=== PATIENT | male | born 1980 | race Two or more races ===

== ENCOUNTER 2024-07-16 10:49 | Outpatient (AMB) | payer MEDICAID, SELFPAY ==
[2024-07-16 11:01] VITALS: BP 160/75; PULSE 80; RESP 19; TEMP 36.6; O2SAT 96
--- NOTE | 2024-07-16 11:01 | GSCOFFNT_ITS ---
Vital Signs - [facility] 07/16/24 11:01 Height 1.75 m Height Method Stated Weight 92.334 kg Weight Measurement Method Standing Scale BMI 30.0 BP 160/75 H Blood Pressure Source Automatic Cuff Blood Pressure Location Right Upper Arm Position Sitting Respiration 19 Pulse 80 Pulse Source Monitor Temp 97.8 F Temp Source Temporal Artery Scan Pulse Oximetry (%) 96 Oxygen Delivery Method Room Air Med/Allergies Allergies & Medications Allergies No Known Drug Allergies Allergy (Verified 07/16/24 11:02) Medication Reconciliation losartan 50 mg tablet 50 mg PO QDAY 07/16/24 [History Confirmed 07/16/24] MA Intake Visit Data Collection New Patient or Established: New Patient (never been to [facility]) Reason for Visit:: PERIANAL ABSCESS REFERRAL Pain Present Currently: Yes Pain Location: Buttock Pain scale:: 2 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 Pt states that 11 months ago he had drainage of a perianal cyst, and after that noted drainage from that area almost daily. He has had times where the area swells up and is unable to drain as well. Pt states his BMs are soft and regular, without any diarrhea or straining and he denies any blood in his stool. Pt also denies any abdominal pain, changes in weight or appetite and he has not had a colonoscopy PMH: HTN PSHx: I&D of perianal abscess in 2023, cholecystectomy Meds: Losartan Allergies: NKDA Social hx: Nonsmoker Family hx: No known IBD or malignancy ROS Review of Systems Systems Reviewed: All systems reviewed, normal except as documented Objective/Exam General General Appearance: alert, cooperative and well groomed Resp Respiratory exam: Absent respiratory distress Rectal Rectal exam: Present other (right perianal fistula external opening approx 4cm from anal verge, with minimal blood and yellow drainage. Normal SATISH, slight increase in yellow drainage from external opening when pressure applied to the right side of the anus) Results CT reviewed showing right perianal fistula tract up to 3cm Assessment & Plan Diagnosis / Problem List (1) Perianal fistula: Status: Acute Assessment & Plan: 44M presenting with a perianal fistula after I&D of perianal abscess. I explained that fistula tends to occur in 50% of patients with perianal abscesses drained and that surgery is done in two stages, first with seton placement followed by definitive repair when the drainage significantly decreases. I explained benefits/risks and pt is eager to proceed as soon as possible. As he does not have any high-risk features or signs of IBD I do not plan on colonoscopy for now Plan: Examination under anesthesia with seton placement SON Office Procedures GNS Level of Care Nursing/Assessment Patient Status: Initial/New Patient Nursing Assessment/Reassesment: Medication Reconciliation, Update PMH in EMR and Vital Signs Coordination of Care: Complex Care and Chronic Disease 1-5, Education Complex Pt/Fam, Consent,records obtained, informed consent, Results/Orders obtained and Staff clarify orders Special Needs: Language special needs New Patient Charge New Patient Point Assignment: [id number] New Patient Point Charge: MASTER CARPENTER Level 3 ([id number]) Patient Portal Questionaires Social History Tobacco History Smoking Status: Never smoker Domestic Abuse History Do You Feel Safe at Home: Yes Review of Systems Report any current symptoms Only answer those that you have currently: Past Medical History Past Medical History Have you ever been diagnosed with any of the following:
== END 2024-07-16 11:56 | disposition home or self-care (01) ==
LOC: HODSRG 10:49
PROVIDERS: PCP Internal Medicine; Referring Provider Internal Medicine; Supervising Provider Surgery; Visit Provider Surgery
DX: K60.30 Anal fistula, unspecified (principal)
CPT/HCPCS: 99203; G0463

== ENCOUNTER 2024-08-01 05:35 | Day surgery (SDC) | payer MEDICAID, SELFPAY ==
--- NOTE | 2024-07-30 07:00 | EKG_ITS ---
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
[2024-07-30 09:12] VITALS: BMI 31.8
[2024-07-30 10:52] LABS: Basophils # (Auto) 0.1 Thou/mm3 (0.0-0.2); Basophils % (Auto) 1 % (0-2.5); Eosinophils # (Auto) 0.2 Thou/mm3 (0.0-0.5); Eosinophils % (Auto) 3 % (0-10); Hematocrit 44.9 % (41.0-53.0); Hemoglobin 15.5 g/dL (13.5-16.0); Immature Granulocytes % (Auto) 1 % (0-0); Immature Granulocytes Auto 0.04 Thou/mm3 (0.00-0.00); Lymphocytes # (Auto) 2.2 Thou/mm3 (1.0-4.8); Lymphocytes % (Auto) 34 % (10-50); Mean Corpuscular HGB Conc 34.5 g/dl (31.0-37.0); Mean Corpuscular Hemoglobin 28.7 pg (25.0-35.0); Mean Corpuscular Volume 83 fL (80-100); Monocytes # (Auto) 0.5 Thou/mm3 (0.0-0.8); Monocytes % (Auto) 8 % (0-12); Neutrophils # (Auto) 3.6 Thou/mm3 (1.8-7.7); Neutrophils % (Auto) 54 % (37-80); Nucleated Red Blood Cell % 0 /100 WBC (0); Platelet Count 375 Thou/mm3 (140-440); RDW Standard Deviation 39.7 fL (35.1-43.9); White Blood Count 6.6 Thou/mm3 (3.8-10.6)
[2024-07-30 11:00] LABS: INR 1.1 (0.9-1.3); Partial Thromboplastin Time 30.9 Seconds (22.0-36.0); Prothrombin Time 12.3 Seconds (9.0-12.2)
[2024-07-30 11:15] LABS: Alanine Aminotransferase 24 U/L (10-49); Albumin, Serum 4.5 gm/dL (3.5-5.0); Albumin/Globulin Ratio 1.7 (1.2-2.2); Alkaline Phosphatase 59 U/L (46-116); Anion Gap 11 (7-16); Aspartate Amino Transferase 20 U/L (0-34); BUN/Creatinine Ratio 16 Ratio (12-20); Bilirubin,Total 0.8 mg/dL (0.3-1.2); Blood Urea Nitrogen 14 mg/dL (9-23); Calcium 9.2 mg/dL (8.3-10.6); Calcium (Corrected) 9.2 mg/dL (8.5-10.1); Carbon Dioxide 27.3 mMol/L (20.0-31.0); Chloride 102 mMol/L (98-107); Creatinine (Component) 0.9 mg/dL (0.6-1.3); Estimated Creatinine Clearance 115.8 mL/min (>60); Globulin 2.6 gm/dL (2.3-3.5); Glucose 100 mg/dL (74-106); Osmolality,Calculated 279 (275-295); Potassium 4.1 mMol/L (3.4-5.1); Sodium 140 mMol/L (136-145); Total Protein 7.1 gm/dL (5.7-8.2); eGFR > 60 See Note
[2024-08-01] VITALS (7 sets, daily range): BP systolic 111–149; BP diastolic 65–83; PULSE 75–95; RESP 12–16; TEMP 36.3–36.8; O2SAT 95–100; BMI 31.1
--- NOTE | 2024-08-01 08:13 | PD.SUROPNT ---
Date of Procedure 08/01/24 Pre Op Diagnosis Perianal fistula Post Op Diagnosis Same Procedure Examination under anesthesia, placement of seton Findings Right posterior perianal fistula approximately 4 cm from anal verge Procedure Description After discussion of risks and benefits, patient was brought to the operating room and general anesthesia was induced. He was placed in the lithotomy position with proper padding and was prepped and draped in the usual sterile fashion. After timeout a SATISH was performed which was normal. A Leslie retractor was then placed into the anal canal. The external opening of the perianal fistula was noted in the right posterior perianal region approximately 4 cm from the anal verge. The external opening was cannulated with the fistula probe and the internal opening was found. A seton (vessel loop) was tied to the probe with a 0 silk tie and was brought through the external opening. The seton was tied to itself using 3-0 silk interrupted ties. There were no signs of bleeding at the end of the case. A right pudendal nerve block was performed as well as a local block for a total of 30 cc of half percent Marcaine. Patient was returned to supine position and extubated without complication. He was brought to PACU in stable condition Pathology / specimen None Estimated Blood Loss 20 Surgeon Livia Magana MD Surgical Staff Operation Date: 08/01/24 07:30 Case Staff Anesthesiologist: Carlos Manuel Nunez
--- NOTE | 2024-08-01 08:16 | PD.SURDS ---
Planned Discharge Date 08/01/24 DS: Providers Provider Primary care physician: Mallory Corona MD Attending Provider on Admission: Livia Magana MD Attending Provider on DC: Livia Magana MD Discharging Provider: Livia Magana MD Diagnosis Discharge Diagnosis (1) Perianal fistula: Status: Acute Problem List Completed Was Problem List Reviewed/Reconciled?: Yes Exam Vital Signs Temp Pulse Resp BP Pulse Ox 98.3 F 78 12 149/83 H 100 08/01/24 06:50 08/01/24 06:50 08/01/24 06:50 08/01/24 06:50 08/01/24 06:50 Constitutional Constitutional: no acute distress Discharge Plan Plan Patient Disposition: HOME (Self Care) Prescriptions/Referrals Prescriptions/Med Rec: New oxycodone-acetaminophen [Percocet] 5-325 mg tablet 1 tab PO Q6H MDD 4 tabs PRN (Reason: pain) Qty: 20 0RF Rx Instructions: Take 1 tablet as needed every 6 hours for severe pain docusate sodium [Colace] 100 mg capsule 100 mg PO QDAY PRN (Reason: constipation) Qty: 30 0RF No Action losartan 50 mg tablet 50 mg PO QDAY doxycycline monohydrate 100 mg capsule 100 mg PO BID Referrals: Livia Magana MD [Physician] - (You will receive a phone call to confirm a follow-up appointment with me in 6 weeks) Mallory Corona MD [Primary Care Provider] - Patient/Caregiver Discharge Instructions Other Discharge Activity Instructions:: Avoid constipation and diarrhea You may take ibuprofen as needed between doses of Percocet or instead of Percocet for mild to moderate pain You may resume sitz baths as needed for pain, bleeding, and itching up to three times a day starting tomorrow 08/01 If you develop worsening pain, fever, nausea/vomiting or difficulty urinating please seek care in ER Education Materials: Surgery Anesthesia After, ED [facility]ist[facility], [facility] General Discharge-English Print Language: English Stand Alone Forms: Jessica Award Info., Patient Portal Info Letter Discharge Order Discharge Orders: Discharge (Routine); Ordered 08/01/24 Ordered By: Livia Magana Results Results: Laboratory Laboratory results: results reviewed Procedures Procedure Date 08/01/24 Procedures Examination under anesthesia, placement of seton
--- NOTE | 2024-08-01 08:26 | SUR.PHASEI ---
pt received from OR in recovery bay 1. pt asleep but responds to voice, breathing unlabored on 4l nc. v/s stable. pt dressing to rectum cdi. report received from Dr. Nunez and Wanda EUGENE.
[2024-08-01] MEDS: TAMSULOSIN HCL 0.4 MG CAPSULE PO (08:54)
--- NOTE | 2024-08-01 08:57 | SUR.PHASEII ---
pt able to tolerate oral fluids without difficulty swallowing or nausea/vomiting.
[2024-08-01] MEDS: ONDANSETRON INJ 2 MG/ML INJ 2 ML 4 MG IV (09:27)
--- NOTE | 2024-08-01 09:37 | SUR.PHASEII ---
pt awake and alert, breathing unlabored on room air. v/s stable. pt dressing to rectum cdi. d/c instructions given with s/o Magdalena in room using driller helper Faby Tellez, all questions answered. pt d/c via wheelchair with all belongings.
== END 2024-08-01 09:37 | disposition home or self-care (01) ==
PROVIDERS: Anesthesiology; PCP Internal Medicine; Referring Provider Surgery; Visit Provider Surgery
PROC: (CPT 46020; principal; 2024-08-01 07:30)
DX: K60.30 Anal fistula, unspecified (principal); Z01.810 Encounter for preprocedural cardiovascular examination
CPT/HCPCS: 46020; 36415; 80053; 85025; 85610; 85730; 93005; A4217; A4649; J1100; J2250; J2371; J2405; J2704; J2765; J3010; J3490; A9270

== ENCOUNTER 2024-08-13 13:11 | Outpatient (AMB) | payer MEDICAID, SELFPAY ==
[2024-08-13 13:34] VITALS: BP 137/79; PULSE 78; RESP 18; TEMP 36.8; O2SAT 97; BMI 31.6
--- NOTE | 2024-08-13 13:34 | GSCOFFNT_ITS ---
Vital Signs - [facility] 08/13/24 13:34 Height 1.7 m Height Method Stated Weight 91.626 kg Weight Measurement Method Standing Scale BMI 31.6 BP 137/79 H Blood Pressure Source Automatic Cuff Blood Pressure Location Left Upper Arm Position Sitting Respiration 18 Pulse 78 Pulse Source Monitor Temp 98.3 F Temp Source Temporal Artery Scan Pulse Oximetry (%) 97 Oxygen Delivery Method Room Air Med/Allergies Allergies & Medications Allergies aspirin Allergy (Mild, Verified 08/13/24 13:35) Hives Medication Reconciliation losartan 50 mg tablet 50 mg PO QDAY 07/16/24 [History Confirmed 08/13/24] doxycycline monohydrate 100 mg capsule 100 mg PO BID 07/30/24 [History Confirmed 08/13/24] docusate sodium 100 mg capsule (Colace) 100 mg PO QDAY PRN constipation #30 caps 08/01/24 [Rx Confirmed 08/13/24] oxycodone-acetaminophen 5 mg-325 mg tablet (Percocet) 1 tab PO Q6H PRN pain #20 tabs 08/01/24 [Rx Confirmed 08/13/24] MA Intake Visit Data Collection New Patient or Established: Established Patient (seen at [facility] within 3 years) Seen by Clinical Staff ONLY (RN/MA): No Reason for Visit:: FISTULA FOLLOW UP Pain Present Currently: No House Designer Required: No PCP or OBGYN visit in last 3 months: Yes Smoking Status Smoking Status: Never smoker Immunization / Flu Flu Vaccine in the Last 12 Months: No Flu Vaccine Exclusion Criteria: No Exclusion Criteria Past Medical History Past Medical History NEUROLOGIC: Negative Neurological Disorders or Seizures CARDIAC: Positive Cardiac Disorders and Hypertension; Negative Congestive Heart Failure RESPIRATORY: Negative Chronic Obstructive Pulmonary Disease (COPD) GASTROINTESTINAL: Positive Gastrointestinal Disorders (FISTULA IN RIGHT BUTTOCK), Gall Bladder Disease (HAD SURGERY) and Gastroesophageal Reflux Disease (AT TIMES); Negative Hepatitis GENITOURINARY: Negative Genitourinary Disorders or Renal Disease ENDOCRINE: Negative Endocrine Disorders, Diabetes Mellitus Type 1 or Diabetes Mellitus Type 2 HEMATOLOGIC: Negative Blood Disorders OTHER HISTORY: Positive Chicken Pox; Negative Falls, Blood Transfusions, Blood Transfusion Reaction, Anesthesia Reactions or Cancer Family History FAMILY HISTORY: Negative Family Cardiac Disorders, Family Surgery or Family Anesthesia Reaction Social History SMOKING STATUS: Smoking status: Never smoker HOUSING: Housing: Apartment HPI HPI Narrative 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 Pt is hoping to have definitive surgery before he returns to work Sep 23 so he requested to be seen sooner than the planned 6 week follow up. He states he feels well overall, has some discomfort from the seton but it is controlled with ibuprofen, and he feels his drainage has decreased by 50% since the surgery. He denies any fever, is having regular soft BMs and had some difficulty urinating at first but that has since improved ROS Review of Systems Systems Reviewed: All systems reviewed, normal except as documented Objective/Exam General General Appearance: alert and cooperative Resp Respiratory exam: Absent respiratory distress Rectal Rectal exam: Present other (right perianal seton in place with minimal drainage from external opening, no erythema) Assessment & Plan Diagnosis / Problem List (1) Perianal fistula: Status: Acute Assessment & Plan: 44M referred for perianal fistula s/p EUA with seton placement 08/01/24 here for follow up, with decreased drainage overall doing well. I explained that definitive surgery is best undertaken when drainage has significantly decreased and pt expressed understanding. Will follow up again in a few weeks Office Procedures GNS Level of Care Nursing/Assessment Patient Status: Established Patient Nursing Assessment/Reassesment: Medication Reconciliation, Update PMH in EMR and Vital Signs Coordination of Care: Complex Care and Chronic Disease 1-5, Consent,records obtained, informed consent, Education Simp Pt/Fam, Results/Orders obtained and Staff clarify orders Established Patient Charge Established Patient Point Assignment: 90 Established Patient Point Charge: EP Level 3 (80-115) Patient Portal Questionaires Social History Living Situation History Housing: Apartment Tobacco History Smoking Status: Never smoker Review of Systems Report any current symptoms Only answer those that you have currently: Past Medical History Past Medical History Have you ever been diagnosed with any of the following: Neurological Problems Seizures: No Cardiology Problems Congestive Heart Failure: No Hypertension: Yes Respiratory Problems Chronic Obstructive Pulmonary Disease (COPD): No Stomache/Intestinal Problems Hepatitis: No Gall Bladder Disease: Yes (HAD SURGERY) Gastroesophageal Reflux Disease: Yes (AT TIMES) Genital/Urinary Problems Renal Disease: No Endocrine Problems Diabetes Mellitus Type 1: No Diabetes Mellitus Type 2: No Other Problems Falls: No Blood Transfusions: No Blood Transfusion Reaction: No Anesthesia Reactions: No Chicken Pox: Yes Cancer: No
== END 2024-08-13 13:59 | disposition home or self-care (01) ==
LOC: HODSRG 13:11
PROVIDERS: PCP Internal Medicine; Referring Provider Internal Medicine; Supervising Provider Surgery; Visit Provider Surgery
DX: K60.30 Anal fistula, unspecified (principal); I10 Essential (primary) hypertension
CPT/HCPCS: 99213; G0463

== ENCOUNTER 2024-09-03 13:15 | Outpatient (AMB) | payer MEDICAID, SELFPAY ==
[2024-09-03 13:24] VITALS: BP 143/76; PULSE 107; RESP 18; TEMP 36.6; O2SAT 95; BMI 32.0
--- NOTE | 2024-09-03 13:24 | PD.GSCLVISIT ---
Vital Signs - [facility] 09/03/24 13:24 Height 1.7 m Height Method Stated Weight 92.561 kg Weight Measurement Method Standing Scale BMI 32.0 BP 143/76 H Blood Pressure Source Automatic Cuff Blood Pressure Location Right Upper Arm Position Sitting Respiration 18 Pulse 107 H Pulse Source Monitor Temp 97.8 F Temp Source Temporal Artery Scan Pulse Oximetry (%) 95 Oxygen Delivery Method Room Air Med/Allergies Allergies & Medications Allergies aspirin Allergy (Mild, Verified 09/03/24 13:25) Hives Medication Reconciliation losartan 50 mg tablet 50 mg PO QDAY 07/16/24 [History Confirmed 09/03/24] doxycycline monohydrate 100 mg capsule 100 mg PO BID 07/30/24 [History Confirmed 09/03/24] docusate sodium 100 mg capsule (Colace) 100 mg PO QDAY PRN constipation #30 caps 08/01/24 [Rx Confirmed 09/03/24] oxycodone-acetaminophen 5 mg-325 mg tablet (Percocet) 1 tab PO Q6H PRN pain #20 tabs 08/01/24 [Rx Confirmed 09/03/24] MA Intake Visit Data Collection New Patient or Established: Established Patient (seen at [facility] within 3 years) Seen by Clinical Staff ONLY (RN/MA): No Reason for Visit:: 3 WEEK F/U Pain Present Currently: Yes Pain Location: Buttock Pain scale:: 5 Pain Scale Used: Delarosa-Ruiz/Numerical Director Of Corporate Real Estate Required: Yes PCP or OBGYN visit in last 3 months: Yes Hx Now: No Do You Feel Safe at Home: Yes Authorities Contacted: N/A Smoking Status Smoking Status: Never smoker Immunization / Flu Flu Vaccine in the Last 12 Months: No Flu Vaccine Exclusion Criteria: No Exclusion Criteria Past Medical History Past Medical History NEUROLOGIC: Negative Neurological Disorders or Seizures CARDIAC: Positive Cardiac Disorders and Hypertension; Negative Congestive Heart Failure RESPIRATORY: Negative Chronic Obstructive Pulmonary Disease (COPD) GASTROINTESTINAL: Positive Gastrointestinal Disorders (FISTULA IN RIGHT BUTTOCK), Gall Bladder Disease (HAD SURGERY) and Gastroesophageal Reflux Disease (AT TIMES); Negative Hepatitis GENITOURINARY: Negative Genitourinary Disorders or Renal Disease MUSCULOSKELETAL: Negative Musculoskeletal Disorders ENDOCRINE: Negative Endocrine Disorders, Diabetes Mellitus Type 1 or Diabetes Mellitus Type 2 HEMATOLOGIC: Negative Blood Disorders OTHER HISTORY: Positive Chicken Pox; Negative Falls, Blood Transfusions, Blood Transfusion Reaction, Anesthesia Reactions or Cancer Family History FAMILY HISTORY: Negative Family Cardiac Disorders, Family Surgery or Family Anesthesia Reaction Social History SMOKING STATUS: Smoking status: Never smoker HOUSING: Housing: Apartment Travel Risk Travel Hx Recent Travel: No HPI HPI Narrative 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 Pt states he has a lot of pain related to the seton, it improves with ibuprofen and he denies any fever. His BMs are still soft and regular but he feels his drainage has overall increased. Pt has been taking antibiotics because he feels like when he stops them the drainage increases ROS Review of Systems Systems Reviewed: All systems reviewed, normal except as documented Objective/Exam General General Appearance: alert, cooperative and well groomed Resp Respiratory exam: Absent respiratory distress Rectal Rectal exam: Present other (right perianal fistula with external opening migrated more towards the anus, now approx 3cm from anal verge. Pt has pain with manipulation of the seton but there is no erythema, no fluctuance or active drainage) Assessment & Plan Diagnosis / Problem List (1) Perianal fistula: Status: Acute Assessment & Plan: 44M referred for perianal fistula s/p EUA with seton placement 08/01/24 here for follow up. As he has noted drainage has overall increased compared to before surgery, I recommended leaving the seton in and evaluating in another 6 weeks. Pt was hoping to have definitive surgery before he returns to work in September but I explained that definitive surgery in the setting of increased drainage may confer a higher risk of fistula persistence/recurrence. I offered to replace the seton as he has expressed that it feels tight but pt prefers not to for now. All questions were answered and pt ultimately agreed to 6 week follow up Office Procedures GNS Level of Care Nursing/Assessment Patient Status: Established Patient Nursing Assessment/Reassesment: Medication Reconciliation, Update PMH in EMR and Vital Signs Coordination of Care: Complex Care and Chronic Disease 1-5, Education Complex Pt/Fam, Consent,records obtained, informed consent, 1 Ins Authorization, Results/Orders obtained and Staff clarify orders Special Needs: Language special needs Established Patient Charge Established Patient Point Assignment: 110 Established Patient Point Charge: EP Level 3 (80-115) Patient Portal Questionaires Social History Living Situation History Housing: Apartment Tobacco History Smoking Status: Never smoker Domestic Abuse History Do You Feel Safe at Home: Yes Review of Systems Report any current symptoms Only answer those that you have currently: Past Medical History Past Medical History Have you ever been diagnosed with any of the following: Neurological Problems Seizures: No Cardiology Problems Congestive Heart Failure: No Hypertension: Yes Respiratory Problems Chronic Obstructive Pulmonary Disease (COPD): No Stomache/Intestinal Problems Hepatitis: No Gall Bladder Disease: Yes (HAD SURGERY) Gastroesophageal Reflux Disease: Yes (AT TIMES) Genital/Urinary Problems Renal Disease: No Endocrine Problems Diabetes Mellitus Type 1: No Diabetes Mellitus Type 2: No Other Problems Falls: No Blood Transfusions: No Blood Transfusion Reaction: No Anesthesia Reactions: No Chicken Pox: Yes Cancer: No
== END 2024-09-03 13:49 | disposition home or self-care (01) ==
LOC: HODSRG 13:15
PROVIDERS: PCP Internal Medicine; Referring Provider Internal Medicine; Supervising Provider Surgery; Visit Provider Surgery
DX: K60.30 Anal fistula, unspecified (principal)
CPT/HCPCS: 99213; G0463

== ENCOUNTER 2024-12-10 10:01 | Outpatient (AMB) | payer MEDICAID, SELFPAY ==
[2024-12-10 10:15] VITALS: BP 150/92; PULSE 77; RESP 18; TEMP 36.4; O2SAT 98; BMI 32.6
--- NOTE | 2024-12-10 10:15 | PD.GSCLVISIT ---
[facility] - [facility] 12/10/24 10:15 Height 1.7 m Height Method Measured Weight 94.404 kg Weight Measurement Method Standing Scale BMI 32.6 BP 150/92 H Blood Pressure Source Automatic Cuff Blood Pressure Location Left Upper Arm Position Sitting Respiration 18 Pulse 77 Pulse Source Monitor Temp 97.5 F Temp Source Temporal Artery Scan Pulse Oximetry (%) 98 Oxygen Delivery Method Room Air Med/Allergies Allergies & Medications Allergies aspirin Allergy (Mild, Verified 12/10/24 10:16) Hives Medication Reconciliation losartan 50 mg tablet 50 mg PO QDAY 07/16/24 [History Confirmed 12/10/24] doxycycline monohydrate 100 mg capsule 100 mg PO BID 07/30/24 [History Confirmed 12/10/24] docusate sodium 100 mg capsule (Colace) 100 mg PO QDAY PRN constipation #30 caps 08/01/24 [Rx Confirmed 12/10/24] oxycodone-acetaminophen 5 mg-325 mg tablet (Percocet) 1 tab PO Q6H PRN pain #20 tabs 08/01/24 [Rx Confirmed 12/10/24] MA Intake Visit Data Collection New Patient or Established: Established Patient (seen at [facility] within 3 years) Seen by Clinical Staff ONLY (RN/MA): No Reason for Visit:: FISTULA F/U Pain Present Currently: No Pain scale:: 0 Pain Scale Used: Delarosa-Ruiz/Numerical Double Needle Operator Required: No PCP or OBGYN visit in last 3 months: Yes Hx Now: No Do You Feel Safe at Home: Yes Authorities Contacted: N/A Smoking Status Smoking Status: Never smoker Immunization / Flu Flu Vaccine in the Last 12 Months: No Flu Vaccine Exclusion Criteria: No Exclusion Criteria Past Medical History Past Medical History NEUROLOGIC: Negative Neurological Disorders or Seizures CARDIAC: Positive Cardiac Disorders and Hypertension; Negative Congestive Heart Failure RESPIRATORY: Negative Chronic Obstructive Pulmonary Disease (COPD) GASTROINTESTINAL: Positive Gastrointestinal Disorders (FISTULA IN RIGHT BUTTOCK), Gall Bladder Disease (HAD SURGERY) and Gastroesophageal Reflux Disease (AT TIMES); Negative Hepatitis GENITOURINARY: Negative Genitourinary Disorders or Renal Disease ENDOCRINE: Negative Endocrine Disorders, Diabetes Mellitus Type 1 or Diabetes Mellitus Type 2 HEMATOLOGIC: Negative Blood Disorders OTHER HISTORY: Positive Chicken Pox; Negative Falls, Blood Transfusions, Blood Transfusion Reaction, Anesthesia Reactions or Cancer Family History FAMILY HISTORY: Negative Family Cardiac Disorders, Family Surgery or Family Anesthesia Reaction Social History SMOKING STATUS: Smoking status: Never smoker HOUSING: Housing: Apartment [facility] HPI Narrative HISTORY OF PRESENT ILLNESS I, Livia Magana, have obtained verbal consent from the patient, to be recorded during this encounter which may include, but not limited to, medical history, examination, treatment plans, and relevant health information.? Patient was informed that recording will be read and reviewed by myself before inclusion in the medical chart. 44M who presents for a follow-up visit for perianal fistula. He is accompanied by an skill training program coordinator. He reports no current pain but has experienced an increase in drainage due to a recent change in his job, which involves more physical exertion. The drainage was particularly significant on the first day of his new role, with a slight decrease on the second day. The amount of fluid varies daily, sometimes being minimal and other times more substantial, depending on his activities. He had two openings where the bandage was applied, one of which had closed but has since reopened. He believes the wound is healing as it feels less hard upon touch. He estimates a 40% reduction in drainage overall. His BMs remain soft without any straining or diarrhea ROS Review of Systems Systems Reviewed: All systems reviewed, normal except as documented Objective/Exam General General Appearance: alert, cooperative and well groomed Resp Respiratory exam: Absent respiratory distress Rectal Rectal exam: Present other (right perianal seton in place, external opening is now approx 1cm closer to anal verge, minimal yellow staining on gauze, no erythema) Assessment & Plan Diagnosis / Problem List (1) Perianal fistula: Status: Acute Assessment & Plan: The patient's condition is improving, with a noticeable reduction in drainage to approximately 40%. I explained that this is a good trajectory but would like to see even less drainage before pursuing definitive surgery. I let pt know that I would support his disability application if he would like to pursue that before surgery but he would like to hold off unless symptoms worsen. All questions were answered and pt is agreeable to following up in 6 weeks Office Procedures GNS Level of Care Nursing/Assessment Patient Status: Established Patient Nursing Assessment/Reassesment: Medication Reconciliation, Update PMH in EMR and Vital Signs Coordination of Care: Complex Care and Chronic Disease 1-5, Education Complex Pt/Fam, Consent,records obtained, informed consent, Results/Orders obtained and Staff clarify orders Established Patient Charge Established Patient Point Assignment: 95 Established Patient Point Charge: Level 3 (27-115) Patient Portal Questionaires Social History Living Situation History Housing: Apartment Tobacco History Smoking Status: Never smoker Domestic Abuse History Do You Feel Safe at Home: Yes Review of Systems Report any current symptoms Only answer those that you have currently: Past Medical History Past Medical History Have you ever been diagnosed with any of the following: Neurological Problems Seizures: No Cardiology Problems Congestive Heart Failure: No Hypertension: Yes Respiratory Problems Chronic Obstructive Pulmonary Disease (COPD): No Stomache/Intestinal Problems Hepatitis: No Gall Bladder Disease: Yes (HAD SURGERY) Gastroesophageal Reflux Disease: Yes (AT TIMES) Genital/Urinary Problems Renal Disease: No Endocrine Problems Diabetes Mellitus Type 1: No Diabetes Mellitus Type 2: No Other Problems Falls: No Blood Transfusions: No Blood Transfusion Reaction: No Anesthesia Reactions: No Chicken Pox: Yes Cancer: No
== END 2024-12-10 11:01 | disposition home or self-care (01) ==
LOC: HODSRG 10:01
PROVIDERS: PCP Internal Medicine; Referring Provider Internal Medicine; Supervising Provider Surgery; Visit Provider Surgery
DX: K60.30 Anal fistula, unspecified (principal)
CPT/HCPCS: 99213; G0463

== ENCOUNTER 2025-01-21 09:12 | Outpatient (AMB) | payer MEDICAID, SELFPAY ==
--- NOTE | 2025-01-21 09:27 | GSCOFFNT_ITS ---
Vital Signs - [facility] 01/21/25 09:28 Height 1.7 m Height Method Measured Weight 95.481 kg Weight Measurement Method Standing Scale BMI 33.0 BP 172/79 H Blood Pressure Source Automatic Cuff Blood Pressure Location Left Upper Arm Position Sitting Respiration 16 Pulse 105 H Pulse Source Monitor Temp 98.1 F Temp Source Temporal Artery Scan Pulse Oximetry (%) 96 Oxygen Delivery Method Room Air Med/Allergies Allergies & Medications Allergies aspirin Allergy (Mild, Verified 01/21/25 09:30) Hives Medication Reconciliation losartan 50 mg tablet 50 mg PO QDAY 07/16/24 [History Confirmed 01/21/25] doxycycline monohydrate 100 mg capsule 100 mg PO BID 07/30/24 [History Confirmed 01/21/25] docusate sodium 100 mg capsule (Colace) 100 mg PO QDAY PRN constipation #30 caps 08/01/24 [Rx Confirmed 01/21/25] oxycodone-acetaminophen 5 mg-325 mg tablet (Percocet) 1 tab PO Q6H PRN pain #20 tabs 08/01/24 [Rx Confirmed 01/21/25] mupirocin 2 % topical ointment (Centany) 1 applic topical BID #22 grams 01/21/25 [Rx] MA Intake Visit Data Collection New Patient or Established: Established Patient (seen at [facility] within 3 years) Seen by Clinical Staff ONLY (RN/MA): No Pain Present Currently: No Pain Scale Used: Delarosa-Ruiz/Numerical Claim Auditor Required: Yes PCP or OBGYN visit in last 3 months: Yes Hx Now: No Do You Feel Safe at Home: Yes Authorities Contacted: N/A Smoking Status Smoking Status: Never smoker Immunization / Flu Flu Vaccine in the Last 12 Months: Yes Flu Vaccine Exclusion Criteria: Already Received Past Medical History Past Medical History NEUROLOGIC: Negative Neurological Disorders or Seizures CARDIAC: Positive Cardiac Disorders and Hypertension; Negative Congestive Heart Failure RESPIRATORY: Negative Chronic Obstructive Pulmonary Disease (COPD) GASTROINTESTINAL: Positive Gastrointestinal Disorders (FISTULA IN RIGHT BUTTOCK), Gall Bladder Disease (HAD SURGERY) and Gastroesophageal Reflux Disease (AT TIMES); Negative Hepatitis GENITOURINARY: Negative Genitourinary Disorders or Renal Disease ENDOCRINE: Negative Endocrine Disorders, Diabetes Mellitus Type 1 or Diabetes Mellitus Type 2 HEMATOLOGIC: Negative Blood Disorders OTHER HISTORY: Positive Chicken Pox; Negative Falls, Blood Transfusions, Blood Transfusion Reaction, Anesthesia Reactions or Cancer Family History FAMILY HISTORY: Negative Family Cardiac Disorders, Family Surgery or Family Anesthesia Reaction Social History SMOKING STATUS: Smoking status: Never smoker HOUSING: Housing: Apartment [facility] HPI Narrative Spoke to pt with in-person survey operations director 44M referred for perianal fistula s/p EUA with seton placement 08/01/24 here for scheduled follow up. Pt states that since last visit he has noted more bloody drainage than purulent, and it is coming from the area where the seton was first placed. He reports occasional pain but states that his BMs remain soft and regular without any straining. 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 Pt states the yellow drainage is significantly decreased compared to before but the bloody drainage is significantly increased, sometimes even soaking a pad. He has also noticed blood mixed in with his BMs, believes it is from this external area as it is more with wiping but states that this is a new development ROS Review of Systems Systems Reviewed: All systems reviewed, normal except as documented Objective/Exam General General Appearance: alert, cooperative and well groomed Resp Respiratory exam: Absent respiratory distress Rectal Rectal exam: Present other (at the right gluteus the previous external fistula opening is raised and drains pus when palpated. The seton is approx 1cm medial to this with no erythema or drainage) Assessment & Plan Diagnosis / Problem List (1) Perianal fistula: Status: Acute Assessment & Plan: 44M referred for perianal fistula s/p EUA with seton placement 08/01/24 here for scheduled follow up, reporting bloody drainage from the external opening of the original fistula which is lateral to where the seton now is. I explained that one option would be to attempt definitive treatment by ligating the fistula tract, removing the current seton and curettaging the previous external opening which is currently draining, however my concern with doing that is that either it would not fully heal or would be prone to returning. The other option I laid out is to replace the current seton with another seton that is going through the area currently draining. While this would effectively mean starting over I do think it is more conservative and gives him a better chance that the eventual definitive surgery will be successful. Pt expressed understanding and is agreeable to this plan Plan: Pt noted difficulty urinating after seton placement, will prescribe flomax for next procedure (2) Encounter for diagnostic colonoscopy due to change in bowel habits: Status: Acute Assessment & Plan: As pt is now noting some blood with his stool I recommended diagnostic colonoscopy. I explained benefits/risks including bleeding, perforation requiring emergency surgery and/or the need to abort prematurely for safety. All questions were answered and pt is agreeable to proceeding Plan: Will schedule colonoscopy with EUA, possible seton placement vs possible li gation of intersphincteric fistula tract Office Procedures GNS Level of Care Nursing/Assessment Patient Status: Established Patient Nursing Assessment/Reassesment: Medication Reconciliation, Update PMH in EMR and Vital Signs Coordination of Care: Complex Care and Chronic Disease 1-5, Education Complex Pt/Fam, Consent,records obtained, informed consent, Results/Orders obtained and Staff clarify orders Special Needs: Language special needs Established Patient Charge Established Patient Point Assignment: 95 Established Patient Point Charge: EP Level 3 (80-115) Patient Portal Questionaires Social History Living Situation History Housing: Apartment Tobacco History Smoking Status: Never smoker Domestic Abuse History Do You Feel Safe at Home: Yes Review of Systems Report any current symptoms Only answer those that you have currently: Past Medical History Past Medical History Have you ever been diagnosed with any of the following: Neurological Problems Seizures: No Cardiology Problems Congestive Heart Failure: No Hypertension: Yes Respiratory Problems Chronic Obstructive Pulmonary Disease (COPD): No Stomache/Intestinal Problems Hepatitis: No Gall Bladder Disease: Yes (HAD SURGERY) Gastroesophageal Reflux Disease: Yes (AT TIMES) Genital/Urinary Problems Renal Disease: No Endocrine Problems Diabetes Mellitus Type 1: No Diabetes Mellitus Type 2: No Other Problems Falls: No Blood Transfusions: No Blood Transfusion Reaction: No Anesthesia Reactions: No Chicken Pox: Yes Cancer: No
[2025-01-21 09:28] VITALS: BP 172/79; PULSE 105; RESP 16; TEMP 36.7; O2SAT 96; BMI 33.0
== END 2025-01-21 10:20 | disposition home or self-care (01) ==
LOC: HODSRG 09:12
PROVIDERS: PCP Internal Medicine; Referring Provider Internal Medicine; Supervising Provider Surgery; Visit Provider Surgery
DX: K60.30 Anal fistula, unspecified (principal); R19.4 Change in bowel habit; I10 Essential (primary) hypertension
CPT/HCPCS: 99213; G0463